=== PATIENT | male | born 1960 | race Caucasian/White ===

== ENCOUNTER 2016-08-20 13:33 | Emergency (ER) ==
[2016-08-20 14:16] LABS: MANUAL DIFF NEEDED? NO
[2016-08-20 14:20] LABS: BASO% 0.5 % (0.0-0.8); EOS# 0.12 X1000 (0.0-0.7); EOS% 1.6 % (0.0-10.0); HEMATOCRIT 38.7 % (42.0-52.0); IMM GRAN# 0.03 X1000 (0.0-0.04); IMM GRAN% 0.4 % (0.0-0.5); LYMPH# 2.28 X1000 (1.2-3.4); MCH 30.6 PG (27-31); MCHC 36.2 g/dL (33-37); MCV 84.7 FL (81-99); MONO% 7.9 % (1.7-9.3); MPV 10.8 FL (7.4-10.4); NEUT% 59.6 % (42.2-75.2); PLT 239 X1000 (130-400); RBC 4.57 XMIL (4.7-6.1)
[2016-08-20 14:27] LABS: URINE CULTURE NEEDED? NO; URINE MICRO REVIEW NEEDED? NO; URINE SOURCE CLEAN CATCH
[2016-08-20 14:35] LABS: BILIRUBIN URINE NEGATIVE (NEGATIVE); BLOOD URINE NEGATIVE (NEGATIVE); COLOR YELLOW; GLUCOSE URINE NEGATIVE (NEGATIVE); LEUKOCYTES URINE NEGATIVE (NEGATIVE); NITRITE URINE NEGATIVE (NEGATIVE); PH URINE 5.5; PROTEIN URINE NEGATIVE (NEGATIVE); SP GRAVITY URINE 1.024; TURBIDITY URINE CLEAR (CLEAR); UROBILINOGEN URINE NORMAL (NORMAL)
[2016-08-20 14:35] LABS: AGAP 13; ALKALINE PHOSPHATASE 49 U/L (32-122); AMYLASE 73 U/L (20-200); BUN 12 mg/dL (8-22); CHLORIDE 101 mmol/L (98-107); COSMO 282; GOT 25 U/L (10-34); GPT 39 U/L (10-44); LIPASE 27 U/L (13-60); POTASSIUM 3.8 mmol/L (3.5-5.1); SODIUM 140 mmol/L (136-145); TCO2 26 mmol/L (25-35); TOTAL BILIRUBIN 0.34 mg/dL (0.20-1.00); TOTAL PROTEIN 6.9 g/dL (6.3-8.3)
[2016-08-20 14:37] LABS: UR EPITHELIAL CELLS <10 /HPF (<10); URINE BACTERIA NEGATIVE /HPF; URINE RBC <10 /HPF (<10); URINE WBC <10 /HPF (<10)
[2016-08-20] MEDS ORDERED: MORPHINE IV ONE (16:35)
[2016-08-20] MEDS ORDERED: NS 1,000 ML IV ONE (16:35)
[2016-08-20] MEDS ORDERED: ZOFRAN IV ONE (16:35)
--- NOTE | 2016-08-20 16:53 | PROVIDER DOCUMENTATION ---
HPI-Abdominal Pain/GI Problem - General Source: patient <Keny Foreman - Last Filed: 08/20/16 16:50> - History of Present Illness-ABD Abdominal Pain Onset Location: reports: LLQ Pain Radiation: reports: no radiation Quality of Pain: reports: aching Severity in ED: reports: mild Onset/Duration: reports: 5 days ago Timing: reports: still present Activities at Onset: reports: none Modifying Factors: improves with: nothing Associated Symptoms: reports: dizziness, fever/chills, nausea Bruising or Bleeding Gums?: No Similar Symptoms Previously?: No Recently seen or treated by another doctor?: Yes (Urgent Care) <ChandlerCassia doe - Last Filed: 08/20/16 19:58> - General Chief Complaint: Abdominal Pain Stated Complaint: ABD PAIN/EAR PAIN Time Seen by Provider: 08/20/16 16:19 Allergies/Adverse Reactions: Patient Allergies Allergy/AdvReac Type Severity Reaction Status Date / Time acetaminophen Allergy NAUSEA Verified 08/20/16 18:53 [From Lorcet (hydrocodone)] hydrocodone bitartrate * Allergy NAUSEA Verified 08/20/16 18:53 [From Lorcet (hydrocodone)] - History of Present Illness-ABD Nature of Presenting Problems: 56 year old WM presents with a 5 day history of LLQ pain, constant,dull, non- radiating worsening over 5 days with associated nausea, anorexia, dizziness, subjective fever and chills. last BM this morning, normal. pt reports he mat have a hernia in the LLQ. pt reports the pain has kept him awake at night and he is unable to get in a comfortable position. (Keny Foreman) Review of Systems - Adult - REVIEW OF SYSTEMS - ADULT Constitutional: reports: chills, fever Eyes: reports: no symptoms reported Ears, Nose, Mouth & Throat: denies: ear pain, throat pain Cardiovascular: denies: chest pain, palpitations Respiratory: denies: cough, shortness of breath Gastrointestinal: reports: abdominal pain, nausea. denies: constipation, diarrhea, vomiting Genitourinary: denies: dysuria, hematuria Musculoskeletal: denies: bone pain, muscle aches, muscle weakness Integumentary: denies: skin sores/ulcer, skin thickening Neurological: reports: headache/migraines. denies: dizziness/vertigo Psychiatric: reports: no symptoms reported Endocrine: reports: no symptoms reported Hematologic/Lymphatic: reports: no symptoms reported Allergic/Immunologic: reports: no symptoms reported All Other Systems: Reviewed and Negative <ChandlerCassia - Last Filed: 08/20/16 19:58> Past History - Adult - PAST MEDICAL HISTORY-ADULT Review of Records: reports: Nursing Assessment Review, Medications Reviewed Major Childhood Illnesses: reports: denies history - PRIOR SURGERIES/PROCEDURES Surgical/Procedure History: reports: hernia repair - IMMUNIZATION STATUS Childhood Immunizations: See Nurse Assessment Flu Vaccine: See Nurse Assessment - SOCIAL HISTORY Smoking: non-smoker Substance Use: none/never Alcohol Use Frequency: never <Cassia Arteaga - Last Filed: 08/20/16 19:58> Physical Exam-General - PHYSICAL EXAM-ADULT Initial Vital Signs Reviewed: Yes - CONSTITUTIONAL General Appearance: appears well, alert, no apparent distress - RESPIRATORY Respiratory: chest non-tender, lungs clear, normal breath sounds - CARDIOVASCULAR Cardiovascular: normal peripheral pulses, regular rate, rhythm, no edema - GASTROINTESTINAL (ABDOMEN) Abdominal Exam: normal bowel sounds, soft, tenderness (lower ABD greater LLQ) - MUSCULOSKELETAL Back Exam: no CVA tenderness Extremity: normal inspection - SKIN Integumentary: normal color, normal turgor, warm/dry - PSYCHIATRIC Psych/Mental Status: normal mood/affect, normal thought content, normal thought process, oriented x 3 <Cassia Arteaga - Last Filed: 08/20/16 19:58> Progress <Keny Foreman - Last Filed: 08/20/16 16:50> - CT/MRI 1 CT Study: Abdomen, Pelvis Impression: Abnormal (possible epiploic appendigitis in LLQ. mild fatty liver. otherwise NAD.) <Cassia Arteaga - Last Filed: 08/20/16 19:58> - PLAN OF CARE/RESULTS Progress/Plan/Lab Results: plan of care: imaging, labs, fluids, medications Orders Category Date Time Status Saline Loc NOW Care 08/20/16 16:33 Active ABDOMEN/PELVIS W/O CONTRAST [CT] Stat Exams 08/20/16 18:59 Taken AMYLASE [CHEM] Stat Lab 08/20/16 13:58 Completed CBC WITH ELECTRONIC DIFF [HEME] Stat Lab 08/20/16 13:58 Completed COMPREHENSIVE METABOLIC PANEL [CHEM] Stat Lab 08/20/16 13:58 Completed LIPASE [CHEM] Stat Lab 08/20/16 13:58 Completed UA Reflex [URINALYSIS W/POSS RFLX CULT] [URINALYSIS] Lab 08/20/16 14:20 Completed Stat 0.9% Sodium Chloride Inj [Ns] 1,000 ml Med 08/20/16 16:35 Discontinued IV 999 mls/hr Morphine Med 08/20/16 16:35 Discontinued 4 mg IV NOW ONE Ondansetron Odt [Zofran Odt] Med 08/20/16 19:00 Discontinued 8 mg PO NOW ONE Ondansetron [Zofran] Med 08/20/16 16:35 Discontinued 4 mg IV NOW ONE Laboratory Tests 08/20/16 08/20/16 08/20/16 13:58 13:58 14:20 WBC 7.60 RBC 4.57 L Hgb 14.0 Hct 38.7 L MCV 84.7 MCH 30.6 MCHC 36.2 RDW Std Deviation 12.4 Plt Count 239 MPV 10.8 H Immature Gran % (Auto) 0.4 Neut % (Auto) 59.6 Lymph % (Auto) 30.0 Casey % (Auto) 7.9 Eos % (Auto) 1.6 Baso % (Auto) 0.5 Immature Gran # (Auto) 0.03 Neut # (Auto) 4.53 Lymph # (Auto) 2.28 Casey # (Auto) 0.60 H Eos # (Auto) 0.12 Baso # (Auto) 0.04 Sodium 140 Potassium 3.8 Chloride 101 Carbon Dioxide 26 Anion Gap 13 BUN 12 Creatinine 0.9 Estimated GFR/1.73 m2 > 60 BUN/Creatinine Ratio 13 Glucose 155 H Calculated Osmolality 282 Calcium 9.0 Total Bilirubin 0.34 AST 25 ALT 39 Alkaline Phosphatase 49 Total Protein 6.9 Albumin 4.0 Globulin 2.9 Albumin/Globulin Ratio 1.4 Amylase 73 Lipase 27 Urine Source CLEAN CATCH Urine Color YELLOW Urine Turbidity CLEAR Urine pH 5.5 Ur Specific [place] 1.024 Urine Protein NEGATIVE Ur Glucose (Stick) NEGATIVE Ur Ketones (Stick) NEGATIVE Urine Blood NEGATIVE Urine Nitrite NEGATIVE Urine Bilirubin NEGATIVE Urobilinogen Dipstick NORMAL Urine Leukocytes NEGATIVE Urine WBC (Auto) <10 Urine RBC (Auto) <10 U Epithel Cells (Auto) <10 Urine Bacteria (Auto) NEGATIVE Vital Signs - 24 hr 08/20/16 13:53 Temperature 97.7 F Pulse Rate 55 L Respiratory 20 Rate Blood Pressure 158/81 O2 Sat by Pulse 98 Oximetry Pt given results and will be d/c home w/ rx to follow up with PCP. Pt verbally understood instructions. PT remained clinically stable throughout the course of the ED stay and will return if symptoms worsen. (ChandlerCassia) Departure <Keny Foreman - Last Filed: 08/20/16 16:50> - Departure Time of Disposition Order: 19:50 Certified Medical Emergency: Emergent <Cassia Arteaga - Last Filed: 08/20/16 19:58> - Departure DIAGNOSIS: Epiploic appendagitis Disposition: HOME 01 Condition: Good Additional Instructions: Follow up with primary care doctor. Return to ED for any new or worsening symptoms ED Follow Up Instructions: You have been treated by a care provider in the Emergency Department. These instructions are being provided to you so you can have an understanding of how to care for yourself upon discharge. Upon discharge from the Emergency Department, you are responsible for making arrangements for follow-up care by a physician of your choice. Take all prescribed medications as directed. Return to the Emergency Department immediately for any new or worsening symptoms. You may call the Physician Referral phone number at [phone] to obtain a list of Physicians who are taking new patients. Prescriptions: Ibuprofen [Motrin] 800 mg PO Q8H PRN PRN #30 tablet PRN Reason: Pain Hydrocodone/Acetaminophen [[place] 7.5-325 Tablet] 1 each PO Q4-6H PRN PRN #20 tablet PRN Reason: Pain Ondansetron [Zofran Odt] 8 mg PO Q8H PRN #20 tab.rapdis Referrals: Jeanette Marie MD [Primary Care Provider] - Attestation - Physician/ Mid-level Attestation Patient care was provided by Mid-level provider ([employer] WORKER/PA):: Yes Mid-level provider:: Keny Foreman Mid-level documentation review:: The Mid-level provider documentation, treatment plan and medical decision making was reviewed by the physician who agrees with all treatment and medical decision making by the MLP. <Keny Foreman - Last Filed: 08/20/16 16:50> - Scribe Verification/Attestation Scribe:: Cassia Arteaga Acting as Scribe for:: Adolfo Campbell Scribe documention review:: This chart was documented by a scribe and accurately reflects the service the provider performed and the decisions made by the provider. <Cassia Arteaga - Last Filed: 08/20/16 19:58> Physician Attestation - Physician Attestation I, the provider, attest to the following statement:: Adolfo Campbell Physician documentation Attestation:: This documentation recorded by the scribe accurately reflects the service I personally performed and the decisions made by me. <Cassia Arteaga - Last Filed: 08/20/16 19:58>
[2016-08-20] MEDS ORDERED: ZOFRAN ODT PO ONE (19:00)
[2016-08-20] MEDS ORDERED: NORCO-7.5 PO ONE (19:55)
[2016-08-20] MEDS ORDERED: MOTRIN PO ONE (19:55)
[2016-08-20 20:05] VITALS: BP 135/79
--- NOTE | 2016-08-21 10:56 | Diag Imaging Result Document ---
PROCEDURE NAME: ABDOMEN/PELVIS W/O CONTRAST - 08/20/2016 CT ABDOMEN AND PELVIS: COMPARISON: None. FINDINGS: There is a small nonobstructing right renal stone measuring 3 mm. No hydronephrosis or hydroureter. There is some fatty inflammation at the anterior left lower quadrant. See image [id number]. This may indicate epiploic appendagitis. There is diverticulosis of the sigmoid colon. Normal appendix. Mild fatty change of the liver. The lung bases are clear. IMPRESSION: 1. Probable epiploic appendagitis at the anterior left lower quadrant. 2. Diverticulosis coli. 3. Fatty liver. 4. Small nonobstructing right renal stone.
== END 2016-08-20 20:11 | disposition home or self-care (01) ==
LOC: ED 13:33
DX: K63.89 Other specified diseases of intestine (principal); R10.32 Left lower quadrant pain; R50.9 Fever, unspecified; R11.0 Nausea; R51 Headache
CPT/HCPCS: 74176; 80053; 81001; 82150; 83690; 85025; S0181